=== PATIENT | female | born 1955 | race Two or more races ===

== ENCOUNTER 2016-06-03 12:09 | Inpatient (IN) | payer MEDICAID ==
[~2016-06-03 12:09] MED LIST: BACTRIM DS TAB1 EAC2 PO; COLACE100 M1 PO; COZAAR25 M1 PO; HYZAAR 50-12.51 EACH PO; KEFLEX500 M4 PO; LETROZOLE2.5 M1 PO; LEVAQUIN750 M1 PO; LYRICA100 MG/CAP PO; LYRICA50 MG/CAP PO; METFORMIN HCL500 M2 PO; MIRALAX17 G2 PO; MOBIC15 M2 PO; NORCO 5-325 TA1 EACH PO; OMEPRAZOLE20 M3 PO; PERCOCET 5-3251 EACH PO; PRILOSEC20 M1 PO; SENOKOT-S TABL1 EACH PO; SYNTHROID75 MC1 PO; ZOFRAN ODT4 MG SL
[2016-06-03 13:23] LABS: BASO % 0.1 % (0-2); EOSINOPHIL ABSOLUTE COUNT 0.1 tho/cmm (0.0-0.7); HCT-HEMATOCRIT 36.3 % (34.0-49.0); HGB-HEMOGLOBIN 13.2 gm/dl (12.0-15.5); IMMATURE GRANULOCYTES ABSOLUTE 0.02 tho/cmm (0-0.03); IMMATURE GRANULOCYTES PERCENT 0.3 % (0-0.3); LYMPH % 9.8 % (20-45); LYMPH ABSOLUTE COUNT 0.8 tho/cmm (0.8-4.5); MCH (MEAN CORPUSCULAR HGB) 31.6 pg (28.0-32.0); MCHC MEAN CORPUSCULAR HGB CONC 36.4 % (32.0-36.0); MCV (MEAN CELL VOLUME) 86.8 fl (82.0-96.0); MEAN PLATELET VOLUME 10.6 cmc (9.4-12.4); MONO % 7.4 % (0-12); MONOCYTE ABSOLUTE COUNT 0.6 tho/cmm (0.0-1.2); NEUTROPHIL ABSOLUTE COUNT 6.5 tho/cmm (1.6-8.0); NEUTROPHIL-AUTOMATED 6.5 tho/cmm (1.6-8.0); NEUTROPHILS % 81.4 % (40-80); PLATELET COUNT 216 tho/cmm (150-450); RED BLOOD COUNT 4.18 mil/cmm (4.00-5.20); RED CELL DISTRIBUTION WIDTH 12.4 % (12.4-16.4)
[2016-06-03 13:42] LABS: ALB/GLOB RATIO 0.8 (0.8-2.0); ALBUMIN 3.7 g/dl (3.5-5.0); ALKALINE PHOSPHATASE 229 U/L (33-138); ALT/SGPT 423 U/L (12-78); ANION GAP 12 mmol/L (0-20); AST/SGOT 846 U/L (10-40); BILIRUBIN,TOTAL 1.3 mg/dl (0-1.5); BLOOD UREA NITROGEN 10 mg/dl (6-24); CALCIUM 9.2 mg/dl (8.5-10.5); CARBON DIOXIDE-VENOUS 29 mmol/L (22-32); CHLORIDE 98 mmol/l (96-110); CREATININE 0.65 mg/dl (0.50-1.10); GLUCOSE 168 mg/dL (70-110); LIPASE 867 U/L (73-393); POTASSIUM 3.2 mmol/L (3.7-5.1); SODIUM 136 mmol/L (135-145); eGFR VALUE FOR BLACK >90 mL/Min
[2016-06-03 13:53] LABS: PROCALCITONIN 0.07 ng/ml (0.05-0.09)
[2016-06-03 15:00] LABS: URINE APPEARANCE CLEAR; URINE BILIRUBIN NEGATIVE (NEG); URINE BLOOD NEGATIVE (NEG); URINE COLOR YELLOW; URINE GLUCOSE (UA) NEGATIVE (NEG); URINE KETONE NEGATIVE (NEG); URINE LEUKOCYTE ESTERASE POSITIVE (NEG); URINE NITRITE NEGATIVE (NEG); URINE PROTEIN NEGATIVE (NEG)
[2016-06-03 15:05] LABS: URINE RBC 0 /[HPF] (0-5)
[2016-06-04 04:12] LABS: BASO % 0.1 % (0-2); EOS % 0.2 % (0-7); HCT-HEMATOCRIT 29.9 % (34.0-49.0); HGB-HEMOGLOBIN 10.8 gm/dl (12.0-15.5); IMMATURE GRANULOCYTES ABSOLUTE 0.02 tho/cmm (0-0.03); IMMATURE GRANULOCYTES PERCENT 0.2 % (0-0.3); LYMPH % 12.3 % (20-45); LYMPH ABSOLUTE COUNT 1.1 tho/cmm (0.8-4.5); MCHC MEAN CORPUSCULAR HGB CONC 36.1 % (32.0-36.0); MCV (MEAN CELL VOLUME) 85.9 fl (82.0-96.0); MEAN PLATELET VOLUME 10.6 cmc (9.4-12.4); MONO % 8.7 % (0-12); MONOCYTE ABSOLUTE COUNT 0.8 tho/cmm (0.0-1.2); NEUTROPHIL ABSOLUTE COUNT 6.8 tho/cmm (1.6-8.0); NEUTROPHIL-AUTOMATED 6.8 tho/cmm (1.6-8.0); NEUTROPHILS % 78.5 % (40-80); PLATELET COUNT 191 tho/cmm (150-450); RED BLOOD COUNT 3.48 mil/cmm (4.00-5.20); RED CELL DISTRIBUTION WIDTH 12.3 % (12.4-16.4); WHITE BLOOD COUNT 8.7 tho/cmm (4.0-10.0)
[2016-06-04 04:35] LABS: ALB/GLOB RATIO 0.7 (0.8-2.0); ALBUMIN 2.7 g/dl (3.5-5.0); ALKALINE PHOSPHATASE 209 U/L (33-138); AMYLASE 36 U/L (20-90); AST/SGOT 772 U/L (10-40); BLOOD UREA NITROGEN 6 mg/dl (6-24); CARBON DIOXIDE-VENOUS 28 mmol/L (22-32); CHLORIDE 104 mmol/l (96-110); CREATININE 0.43 mg/dl (0.50-1.10); GLUCOSE 124 mg/dL (70-110); SODIUM 140 mmol/L (135-145); eGFR VALUE FOR BLACK >90 mL/Min
[2016-06-04 04:36] LABS: ALT/SGPT 806 U/L (12-78); ANION GAP 11 mmol/L (0-20); LIPASE 161 U/L (73-393)
[2016-06-04 04:48] LABS: POTASSIUM 2.9 mmol/L (3.7-5.1)
[2016-06-04 07:19] LABS: BILIRUBIN,DIRECT 0.6 mg/dl (0.0-0.3); BILIRUBIN,INDIRECT 1.3 mg/dL (0.0-1.0); BILIRUBIN,TOTAL 1.9 mg/dl (0-1.5)
[2016-06-05 04:58] LABS: HGB-HEMOGLOBIN 9.9 gm/dl (12.0-15.5); IMMATURE GRANULOCYTES ABSOLUTE 0.01 tho/cmm (0-0.03); IMMATURE GRANULOCYTES PERCENT 0.1 % (0-0.3); LYMPH % 7.6 % (20-45); LYMPH ABSOLUTE COUNT 0.7 tho/cmm (0.8-4.5); MCHC MEAN CORPUSCULAR HGB CONC 35.4 % (32.0-36.0); MCV (MEAN CELL VOLUME) 87.8 fl (82.0-96.0); MEAN PLATELET VOLUME 10.8 cmc (9.4-12.4); MONO % 4.4 % (0-12); MONOCYTE ABSOLUTE COUNT 0.4 tho/cmm (0.0-1.2); NEUTROPHIL ABSOLUTE COUNT 7.7 tho/cmm (1.6-8.0); NEUTROPHIL-AUTOMATED 7.7 tho/cmm (1.6-8.0); NEUTROPHILS % 87.9 % (40-80); PLATELET COUNT 185 tho/cmm (150-450); RED BLOOD COUNT 3.19 mil/cmm (4.00-5.20); RED CELL DISTRIBUTION WIDTH 12.5 % (12.4-16.4); WHITE BLOOD COUNT 8.7 tho/cmm (4.0-10.0)
[2016-06-05 05:08] LABS: ALB/GLOB RATIO 0.6 (0.8-2.0); ALBUMIN 2.5 g/dl (3.5-5.0); ALKALINE PHOSPHATASE 163 U/L (33-138); ALT/SGPT 470 U/L (12-78); ANION GAP 13 mmol/L (0-20); BILIRUBIN,DIRECT 0.2 mg/dl (0.0-0.3); BLOOD UREA NITROGEN 8 mg/dl (6-24); CALCIUM 7.8 mg/dl (8.5-10.5); CARBON DIOXIDE-VENOUS 25 mmol/L (22-32); CHLORIDE 109 mmol/l (96-110); CREATININE 0.38 mg/dl (0.50-1.10); GLUCOSE 145 mg/dL (70-110); POTASSIUM 3.5 mmol/L (3.7-5.1); SODIUM 143 mmol/L (135-145); eGFR VALUE FOR BLACK >90 mL/Min
[2016-06-05 05:13] LABS: AST/SGOT 183 U/L (10-40); BILIRUBIN,INDIRECT 0.6 mg/dL (0.0-1.0); BILIRUBIN,TOTAL 0.8 mg/dl (0-1.5)
[2016-06-05] MEDS ORDERED: PERCOCET 5-3251 EACH PO (14:20)
[2016-06-05] MEDS ORDERED: MIRALAX17 G2 PO (14:21)
[2016-06-05] MEDS ORDERED: CIPRO500 M2 PO (14:22)
== END 2016-06-05 15:40 | DRG 921 ==
LOC: EDMED 12:09 → EMR2 15:21 → PCUB 17:10
PROVIDERS: Emergency Medicine; Family Medicine; ADMIT Family Medicine
PROC: 02HV33Z Insertion of Infusion Device into Superior Vena Cava, Percutaneous Approach (ICD-10-PCS; 2016-06-03)
PROC: 0FPB8DZ Removal of Intraluminal Device from Hepatobiliary Duct, Via Natural or Artificial Opening Endoscopic (ICD-10-PCS; principal; 2016-06-04)
PROC: 0F798DZ Dilation of Common Bile Duct with Intraluminal Device, Via Natural or Artificial Opening Endoscopic (ICD-10-PCS; 2016-06-04)
PROC: 0F998ZZ Drainage of Common Bile Duct, Via Natural or Artificial Opening Endoscopic (ICD-10-PCS; 2016-06-04)
DX: T85.590A Other mechanical complication of bile duct prosthesis, initial encounter (principal); I10 Essential (primary) hypertension; Y82.8 Other medical devices associated with adverse incidents; E11.9 Type 2 diabetes mellitus without complications; E03.9 Hypothyroidism, unspecified; E66.9 Obesity, unspecified; Z68.27 Body mass index [BMI] 27.0-27.9, adult; Z85.3 Personal history of malignant neoplasm of breast
CPT/HCPCS: C1726; C1751; C1769; C2625; C9113; J1170; J1815; J2185; J3370; J3480; J7030; J7050; Q9966